=== PATIENT | male | born 1990 | race Caucasian/White ===

== ENCOUNTER 2020-08-16 13:25 | Outpatient (CLI) | payer OTHER ==
[2020-08-16 13:57] VITALS: BP 125/76
--- NOTE | 2020-08-16 13:57 | SLEEP CARE CONSULTATION ---
Information from patient questionnaire entered by Sharon James. I have reviewed and concur with the information entered by Sharon James. This document represents the service I personally performed and the decisions made by me, Mikaela Beltran ARNP. History of Present Illness Service Date and Time: 08/16/2020 1325 Reason for Visit: New patient Chief Complaint: reports: Unrefreshed sleep, Snoring (a lot and loudly), Excessive daytime sleepiness, Frequent awakenings at night (according to his ). denies: Observed pauses in breathing Date of Onset: 2011 for unrefreshed sleep, snoring - forever Usual bedtime: 10:30 pm or 7 am Time it takes to fall asleep: 5 minutes Snores at night: Yes Observed to quit breathing while asleep: No Sleeps alone due to snoring: Yes (occasionally) Number of times waking at night: I don't know Reasons for waking at night: reports: Bathroom. denies: Choking, Snoring, Gasping for air Toss, Turn, or Twitch while sleeping: Yes Recalls having dreams: No Usually gets out of bed at: 6:30 am or 12 pm Feels refreshed in the morning: No Morning headache: No Sleepy or fatigued during the day: Yes Ever fallen asleep while driving: No Takes day naps: No Dreams during day naps: No Prior sleep studies: No Additional HPI information: I had the pleasure of seeing ALEXANDREA BONILLA today regarding the possibility of him having a sleep disorder. His current complaints are snoring and unrefreshed sleep. He has been snoring loudly for a long time. His states that he wakes up frequently during the night but he does not remember this. She has not told him he stops breathing at night. She will wake him up at night and ask him to go to the couch and he will respond verbally but not remember the next day anything that transpired. He states it takes him about 1 hour to feel like he can start his day after he gets up in the morning. He does not wake up feeling rested most mornings. 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 He is in the [place] and getting out in October and is trying to get his medical work done prior to discharge. He states that he drinks 2 caffeine drinks in succession he will get a very restless leg sensation. He uses a weighted blanket at night to help calm his legs and it does help. He states his mother snores and he thinks she might of had a sleep study but he is not sure what the results were. - Parasomnia Symptoms Ever been unable to move upon waking from sleep: No Walks in sleep: No Talks in sleep: Yes (will talk to him when wakes him up, but he doesn't remember) Ever acted out dreams in sleep: No Ever felt weak in the knees when startled or emotional: Yes Bothered by creepy, crawly, restless sensations in legs: Yes (controls by not having 2 caffiene drinks in succession; uses weight blanket) Problems with memory or concentration: No Subjective Initial [place] Sleepiness Scale score: 9 (in 2020) Past Medical History Past Medical History: reports: GERD, Other (tonsil stones - currently in process of seeking tonsil removal) Social History The patient's occupation is a Active . Patient is and lives in [place]. Have you smoked in the past 12 months: No Alcohol use: Yes Alcohol amount and frequency: 2-3 drinks 1-2 times a year Caffeine use: Yes Caffeine amount and frequency: 1-2 drinks 1-2 times a day Family History Family history of sleep disordered breathing: Yes Family Hx Sleep Apnea: Mother: Snoring Allergies and Home Medications Drug allergies reviewed: Yes (NKDA) Home medication list reviewed: Yes Allergy and home medication list: Cimetidine, started in last 2 weeks Review of Systems Weight gain over past 5 years: 30 Cardiovascular: denies: high blood pressure Gastrointestinal: reports: heartburn Neurological: denies: headaches Psychiatric: denies: anxiety, depression, mood disorder Ear/Nose/Throat: reports: tonsillectomy, wisdom teeth removed (two left) Physical Exam Blood Pressure: 125/76 Cuff size: wrist Heart Rate: 75 O2 Saturation: 98 Height: 5 ft 4 in Weight: 238 lb Body Mass Index: 40.8 BMI Classification: Morbidly Obese Neck circumference: 18.75 (inches) Mouth and throat: narrow oropharynx Soft palate: long Hard palate: normal Uvula visualization: 100% Mallampati Class I Tongue: enlarged in size with teeth mata on lateral edges Tonsils: 2+ Neck: normal w/o lymphadenopathy or thyromegaly Heart: regular rate and rhythm Lungs: clear bilaterally Impression and Plan 1. Suspected Obstructive Sleep Apnea-Hypopnea Syndrome, as suggested by a history of loud and irregular snoring, frequent awakening during the night, unrefreshed sleep, and excessive daytime sleepiness. Narrow oropharynx and obesity are common predisposing factors for obstructive sleep apnea-hypopnea syndrome. I recommend proceeding to polysomnography to confirm the diagnosis and to assess severity. If the patient has significant sleep disordered breathing, a manual CPAP titration study will also be performed to find the optimal treatment pressure. I informed the patient of what the sleep studies involve and after some discussion, obtained agreement to proceed. The pathophysiology of obstruc tive sleep apnea-hypopnea syndrome was discussed with the patient and health risks of cardiovascular and cerebrovascular disease if not treated. AAS brochure for obstructive sleep apnea-hypopnea syndrome given and reviewed. Risks of drowsy driving discussed in detail and patient advised to avoid long distance driving and to char puller at the first sign of drowsiness. Patient agreed to plan. * Schedule polysomnography +- manual CPAP titration study and return in 1-2 weeks after the study to discuss result and initiate therapy. * Avoid long distance driving or driving when feeling sleepy. * Avoid alcohol, sedative and muscle relaxant around bedtime. * Attempt to lose weight. * Review instructions provided by trained office staff on how to prepare for the sleep study. * Return for follow-up after sleep study completed. Counseling Topics: Weight loss health impact Visit Type: In Office Time Spent with Patient (minutes): 30 Provider Statement: I spent 100% of the Face to Face Visit with the patient with greater than 50% spent counseling the patient and coordination of care.
== END 2020-08-16 13:26 | disposition home or self-care (01) ==
LOC: SC 13:25
PROVIDERS: ATTEND Nurse Practitioner Family
DX: R06.83 Snoring (principal); G47.8 Other sleep disorders; G47.10 Hypersomnia, unspecified; E66.01 Morbid (severe) obesity due to excess calories; Z68.41 Body mass index [BMI] 40.0-44.9, adult
CPT/HCPCS: 99203; 99212

== ENCOUNTER 2020-08-18 14:12 | Outpatient (CLI) | payer OTHER | END 2020-08-18 14:13 | disposition home or self-care (01) | LOC: SC 14:12 | PROVIDERS: ATTEND Nurse Practitioner Family | DX: G47.33 Obstructive sleep apnea (adult) (pediatric) (principal); E66.9 Obesity, unspecified; Z68.41 Body mass index [BMI] 40.0-44.9, adult | CPT/HCPCS: 95806 ==

== ENCOUNTER 2020-09-07 11:56 | Emergency (ER) | payer OTHER ==
[2020-09-07] MEDS ORDERED: SODIUM CHLORIDE 0.9% 1,000 ML IV STA (12:27)
[2020-09-07] MEDS ORDERED: HYDROmorphone 1 MG/ML CARPUJECT IVP STA (12:27)
--- NOTE | 2020-09-07 12:31 | ED Physician Documentation ---
History of Present Illness - Stated complaint Stated Complaint: EAR/THROAT PX - Chief complaint Chief Complaint: Heent - Additonal information Additional information: 30-year-old male presents to the emergency department for evaluation of wo rsening sore throat. He underwent a tonsillectomy and adenoidectomy on 01 September secondary to tonsil stones. Since being discharged he has had progressive and worsening pain. Swallow is so difficult he is unable to drink even small bits of water. He has been prescribed oxycodone but does not find that it is helpful. When he does swallow he has a burning ringing sensation in his ears and throat that lasted least 5 minutes. He has not had any fevers. He is hesitant to talk due to the pain. His ENT doctor did write a prescription for prednisone today that has not yet been picked up. Review of Systems Constitutional: reports: Myalgias. denies: Fever, Chills Eyes: reports: Other Ears: reports: Reviewed and negative Nose: reports: Reviewed and negative Throat: reports: Sore throat Cardiac: reports: Reviewed and negative Respiratory: reports: Reviewed and negative : reports: Reviewed and negative Skin: reports: Reviewed and negative Musculoskeletal: reports: Reviewed and negative Neurologic: reports: Reviewed and negative Psychiatric: reports: Reviewed and negative PD PAST MEDICAL HISTORY - Past Medical History Past Medical History: Yes Respiratory: Sleep apnea - Past Surgical History Past Surgical History: Yes HEENT: Tonsil/Adenoidectomy - Allergies Allergies/Adverse Reactions: Allergies Allergy/AdvReac Type Severity Reaction Status Date / Time No Known Drug Allergies Allergy Verified 09/07/20 12:30 - Social History Does the pt smoke?: No Smoking Status: Never smoker Does the pt drink ETOH?: No Does the pt have substance abuse?: No PD ED PE EXPANDED - General General: Alert, In Pain - HEENT HEENT: PERRL (Bilateral subconjunctival hemorrhage), Pharyngeal erythema (Bilateral tonsillar and adenoid beds are surgically absent. Thick aldana eschar covers the surgical sites. Uvula is midline mildly swollen. No soft palate swelling or asymmetry. Full range of motion of neck in all pains. Mild to moderate dysphonia.) - Neck Neck: Supple w/out meningeal sx. No: Stiff neck, Brudzinki's, Adenopathy, No tenderness - Cardiac Cardiac: Regular Rate, Radial strong equal, Cap refill < 2 sec, Prolonged cap refill - Respiratory Respiratory: Clear to ausultation perla. No: Distress, Labored - Abdomen Abdomen: Normal Bowel sounds. No: Tender to palpation - Extremities Extremities: Normal. No: Deformity, Tenderness - Neuro Neuro: Alert and Oriented X 3, CNII-XII intact - GCS Eye Opening: Spontaneous Motor: Obeys Commands Verbal: Oriented Total: 15 Results - Vitals Vitals: Vital Signs - 24 hr 09/07/20 12:02 Temperature 36.6 C Heart Rate 66 Respiratory 15 Rate Blood Pressure 136/78 H O2 Saturation 97 Oxygen O2 Source Room air - Labs Labs: Laboratory Tests 09/07/20 09/07/20 09/07/20 12:28 12:35 12:35 WBC 5.5 RBC 4.95 Hgb 14.0 Hct 41.1 L MCV 83.0 MCH 28.3 MCHC 34.1 RDW 12.8 Plt Count 209 MPV 8.4 Neut # (Auto) 3.9 Lymph # (Auto) 0.9 L Waller # (Auto) 0.5 Eos # (Auto) 0.2 Baso # (Auto) 0.0 Absolute Nucleated RBC 0.00 Nucleated RBC % 0.0 Sodium 133 L Potassium 4.2 Chloride 100 L Carbon Dioxide 23 Anion Gap 10.0 BUN 18 Creatinine 0.8 Estimated GFR (MDRD) 112 Glucose 88 Calcium 8.8 Total Bilirubin 0.9 AST 25 ALT 36 Alkaline Phosphatase 70 Total Protein 7.7 Albumin 4.3 Globulin 3.4 Albumin/Globulin Ratio 1.3 Lipase 23 Group A Strep Rapid Negative PD MEDICAL DECISION MAKING - ED course Complexity details: reviewed results, re-evaluated patient, d/w patient ED course: 30-year-old male presents emergency department with worsening a sore throat and posterior oropharynx pain. He underwent a TNA on the of this month. Despite taking oxycodone at home he feels that his pain is poorly controlled and has been unable to sip liquids adequately thus he fears dehydration. On exam he has surgically absent tonsils and adenoids. He does have the expected postsurgical sequelae of aldana eschar in the surgical bed. His uvula is midline. There is posterior oropharynx erythema but no findings to suggest abscess formation. Full range of motion neck without tenderness I doubt retropharyngeal abscess. Screening labs show no leukocytosis his electrolytes are essentially unremarkable. This gentleman was given a liter of IV fluids as well as 10 mg of Decadron and 1 mg of Dilaudid with moderate improvement in his symptoms. I would defer antibiotics at this stage given lack of fever or leukocytosis. My suspicion for deeper space infection is lower. Rapid strep was negative. His ENT has prescribed the patient a course of prednisone. I have advised the family to delay a taking that for 48 hours given the Decadron administration today. He will continue follow-up with his ENT. Emergent return precautions were discussed. Departure - Departure Disposition: Home, Self Care Clinical Impression: Sore throat, Post-tonsillectomy pain Condition: Stable Record reviewed to determine appropriate education?: Yes Follow-Up: Herman Kenny MD [Physician No Access] - Comments: Gen jamil are seen in the emergency department today for post tonsillectomy pain. The erythema in the back of your throat is consistent with recent tonsillectomy. The aldana patches are also expected. Your screening labs today showed no worrisome findings. Specifically you are not clinically dehydrated and your white blood cell count is normal. I do not suspect a bacterial infection at this time. You were given a liter of IV fluids here in the emergency department, 1 mg of Dilaudid, as well as 10 mg of Decadron. The Decadron is an oral steroid that has a longer time of action than oral prednisone. The Decadron is going to help over the next 24 to 48 hours with pain control. This will reduce inflammation. For this reason please do not begin taking the prednisone until Friday afternoon. I encourage you frequent sips of water, broth, juices or anything with simple calories. It will likely be 7 to 10 days before you are able to to and eat normally. Continue to take the oxycodone and other pain medications as prescribed by your ENT doctor. If at any point you have worsening symptoms, develop high fevers, cannot swallow or tolerate your oral secretions please return immediately to the ER.
[2020-09-07 12:43] LABS: RAPID STREP SCREEN Negative (Negative)
[2020-09-07 12:53] LABS: BASOPHILS % (AUTO) 0.5 %; EOSINOPHILS # (AUTO) 0.2 10^3/uL (0.0-0.7); EOSINOPHILS % (AUTO) 2.7 %; HCT - HEMATOCRIT 41.1 % (42.0-52.0); LYMPHOCYTES # (AUTO) 0.9 10^3/uL (1.5-3.5); LYMPHOCYTES % (AUTO) 16.3 %; MEAN CORPUSCULAR HEMOGLOBIN 28.3 pg (27.0-31.0); MEAN CORPUSCULAR HGB CONC 34.1 g/dL (32.0-36.0); MEAN PLATELET VOLUME 8.4 fL (7.4-11.4); MONOCYTES # (AUTO) 0.5 10^3/uL (0.0-1.0); MONOCYTES % (AUTO) 9.8 %; NEUTROPHILS # (AUTO) 3.9 10^3/uL (1.5-6.6); NEUTROPHILS % (AUTO) 70.5 %; PLT - PLATELET COUNT 209 10^3/uL (130-450); RED BLOOD COUNT 4.95 10^6/uL (4.70-6.10); RED CELL DISTRIBUTION WIDTH 12.8 % (12.0-15.0); WHITE BLOOD COUNT 5.5 x10^3/uL (4.8-10.8)
[2020-09-07] MEDS ORDERED: DEXAMETHASONE 10 MG/ML VIAL PO STA (12:54)
[2020-09-07] MEDS: CHERRY SYRUP 10 ML UDC PO ONE (12:58)
[2020-09-07 13:05] LABS: ALBUMIN 4.3 g/dL (3.2-5.5); ALBUMIN/GLOBULIN RATIO 1.3 (1.0-2.2); BILIRUBIN,TOTAL 0.9 mg/dL (0.2-1.0); CALCIUM 8.8 mg/dL (8.5-10.3); CREATININE 0.8 mg/dL (0.6-1.2); POTASSIUM 4.2 mmol/L (3.5-5.0); TOTAL PROTEIN 7.7 g/dL (6.7-8.2)
[2020-09-07 13:56] VITALS: BP 127/89
== END 2020-09-07 13:56 | disposition home or self-care (01) ==
LOC: ED 11:56
DX: G89.18 Other acute postprocedural pain (principal); J02.9 Acute pharyngitis, unspecified
CPT/HCPCS: 36415; 80053; 83690; 85025; 87070; 87430; 96361; 96374; 99283; 99284; A9270; J1170

== ENCOUNTER 2020-09-08 11:06 | Outpatient (CLI) | payer OTHER ==
--- NOTE | 2020-09-08 11:38 | SLEEP CARE CONSULTATION ---
Information from patient questionnaire entered by Sharon James. I have reviewed and concur with the information entered by Sharno James. This document represents the service I personally performed and the decisions made by , Mikaela Beltran ARNP. History of Present Illness Service Date and Time: 09/08/2020 1106 Initial [place] Sleepiness Scale score: 9 (in 2020) Current [place] Sleepiness Scale score: 6 Additional HPI information: GEN BONILLA returns for follow up and results of the recently performed home sleep study. He was found to have mild obstructive sleep apnea with an AHI of 7.5 and ernst oxygen of 82%. I explained the pathophysiology behind obstructive sleep apnea. We then spent quite a bit of time discussing different treatment options. For mild obstructive sleep apnea, surgery and oral appliance are alternatives to nasal CPAP therapy but in moderate or severe cases, nasal CPAP is the most effective and reliable treatment. I reviewed the impact of weight changes on sleep apnea and strongly recommended losing weight. After some discussion, the patient opted to go with the nasal CPAP therapy. Nasal autoCPAP set at 4-15 cmH20 will be ordered with rationale explained. A manual titration study will be ordered if unable to find optimal pressure with office adjustments. I explained how CPAP machine works with sample devices Respirjudos Dreamstation and [employer] Forge [id number] and what to expect when using the machine. Using CPAP every night in order to get used to it was emphasized. Patient advised to put CPAP mask on before getting into bed so as not to fall asleep without CPAP. To assist acclimation to CPAP use, it could also be used for a short time during day while reading or watching TV. The patient was instructed to call the CPAP supplier to discuss any mechanical problem that may occur. If the mask given is uncomfortable or is difficult to keep on through the night even with adjustment, contact the CPAP supplier as many will replace with another mask style if notified before 30 days. If snoring or perceives is not getting enough air or too much air from the machine, notify this office. AASM patient education PAP tips reviewed and given to patient. Patient does not drink alcohol. Patient was cautioned about risks of drowsy driving until sleepiness symptoms resolve. Sleep Study - Results Type of Sleep Study: Home sleep study Prior sleep studies: No Polysomnography/Home Sleep Study results: Physician Impression: The quality of the study is good. The length of the study is adequate (> 240 minutes). Please also see the tabulated and graphic data. 1. Obstructive Sleep Apnea-Hypopnea (ICD-10 G47.33), mild, with an AHI of 7.5/hr and ernst SaO2 of 82%. During the study, the patient had 24 apneas (20 obstructive, 4 central, 0 mixed) and 31 hypopneas. The longest episode lasted 59.0 seconds. The patient did not sleep supine during this study (supine AHI was 0 and non-supine, 7.54). 2. Hypoxemia (ICD-10 R09.02), mild, with the lowest oxygen saturation of 82 % and 8.1 minutes with SaO2 under 90%. Baseline oxygen saturation was normal (Average oxygen saturation was 93%). Allergies and Home Medications Home medication list reviewed: Yes (tylenol, ibuprofen, oxycodone, decadron (done today), prednisone) Review of Systems Review of systems same as previous: No (Tonsillectomy/adenoidectomy on 09/01/20) Physical Exam Heart Rate: 73 O2 Saturation: 96 Height: 5 ft 4 in Weight: 231 lb Body Mass Index: 39.6 BMI Classification: Obese Impression and Plan 1. Obstructive Sleep Apnea-Hypopnea Syndrome, mild, with lowest oxygen saturation of 82%. Obviously this is the cause of the patients symptoms of unrefreshed sleep, and excessive daytime sleepiness. Positive pressure therapy could benefit gastric reflux. Gen hartmann had a tonsillectomy and adenoidectomy on 01 of September. I discussed him waiting until the area has sufficiently healed before starting the CPAP machine. We could also repeat the study in about 2 months to see if his severity has reduced post surgery. Patient requested to go ahead and start the CPAP therapy. He should have sufficient time to heal in the next 4 to 6 weeks prior to surgery but was cautioned not to start if he is still having any throat swelling or pain. He voiced understanding and agreement with plan. The patient will be started on nasal autoCPAP therapy with pressure set at 4-15 cmH2O. A manual titration study will be completed if unable to find optimal treatment pressure with office adjustments. Compliance guidelines also reviewed. A copy of compliance guidelines will be given for reference at check out. Because the apnea is more severe supine, I instructed to avoid sleeping supine using pillow positioning until able to start CPAP use. 2. Hypoxemia, mild, with the lowest oxygen saturation of 82 % and 8.1 minutes with SaO2 under 90%. His baseline oxygen saturation was normal with an average oxygen saturation of 93%. * Nasal auto CPAP therapy, pressure at 4-15 cm H2O. * Attempt to lose weight. * Avoid alcohol consumption near bedtime. * Avoid supine sleep until using CPAP. * The patient is again cautioned about driving until sleepiness completely resolves. * Return one month after CPAP obtained. I will assess response to therapy and compliance at that time. Counseling Topics: Weight loss health impact Visit Type: In Office Time Spent with Patient (minutes): 22 Provider Statement: I spent 100% of the Face to Face Visit with the patient with greater than 50% spent counseling the patient and coordination of care.
== END 2020-09-08 11:07 | disposition home or self-care (01) ==
LOC: SC 11:06
PROVIDERS: ATTEND Nurse Practitioner Family
DX: G47.33 Obstructive sleep apnea (adult) (pediatric) (principal); E66.9 Obesity, unspecified; Z68.39 Body mass index [BMI] 39.0-39.9, adult
CPT/HCPCS: 99212; 99213